=== PATIENT | male | born 1960 | race Caucasian/White ===

== ENCOUNTER → 2018-01-15 | Outpatient (CLI) | payer OTHER | LOC: CAT 07:56 | DX: J84.10 Pulmonary fibrosis, unspecified (principal); R91.8 Other nonspecific abnormal finding of lung field; R91.1 Solitary pulmonary nodule; M41.84 Other forms of scoliosis, thoracic region ==

== ENCOUNTER → 2018-09-10 | Outpatient (CLI) | payer OTHER | LOC: CAT 08:57 | DX: R91.8 Other nonspecific abnormal finding of lung field (principal) ==